=== PATIENT | female | born 1960 | race Caucasian/White ===

== ENCOUNTER → 2016-09-22 | Outpatient (CLI) | payer OTHER ==
--- NOTE | 2016-09-25 07:18 | MM ---
Reason for exam: screening (asymptomatic). Last mammogram was performed 2 years and 2 months ago. History: Patient history of other cancer. Benign US biopsy breast VAD LT of the left breast, July 18, 2014. Benign US left CoreBiopsy of both breasts, February 10, 2008. Physical Findings: A clinical breast exam by your physician is recommended on an annual basis and results should be correlated with mammographic findings. MG Screening Mammo w CAD Bilateral CC and MLO view(s) were taken. Prior study comparison: July 18, 2014, left breast MG diagnostic mammo LT wo CAD. July 06, 2014, left breast MG diagnostic mammo LT w CAD. The breast tissue is heterogeneously dense. This may lower the sensitivity of mammography. Previous mammotome biopsy in the left breast. No significant changes when compared with prior studies. ASSESSMENT: Negative, BI-RAD 1 RECOMMENDATION: Routine screening mammogram of both breasts in 1 year.
== END ==
LOC: RADMAMWWP 16:41
PROVIDERS: ATTEND Obstetrics & Gynecology
DX: Z12.31 Encounter for screening mammogram for malignant neoplasm of breast (principal)

== ENCOUNTER → 2017-09-14 | Outpatient (CLI) | payer OTHER ==
--- NOTE | 2017-09-14 21:48 | MR ---
EXAMINATION TYPE: MR brain wo/w con DATE OF EXAM: 09/14/2017 COMPARISON: NONE HISTORY: 57-year-old female with headache, fell struck back of head. TECHNIQUE: Multiplanar, multisequence images of the brain and brainstem were acquired before and aft er administration of 6 mL IV Gadavist. Diffusion weighted imaging is performed. Additional axial T2 *gradient sequence was acquired. FINDINGS: No evidence for acute infarction, hemorrhage, mass, mass effect, midline shift, herniation, effacemen t of basal cisterns, or extra-axial fluid collection. The ventricles and sulci are age-appropriate. Major intracranial flow voids are intact. T2/FLAIR weighted sequences show mild scattered bright white matter change in the subcortical, deep, and periventricular white matter of both cerebral hemispheres numbering approximately 10 on each side . There is cortical high signal in the bilateral superior parieto-occipital junctions and additional patchy increased signal in the bilateral paramedian gurdeep. T2*gradient sequence shows no evidence for prior intracranial microplates. Midline structures demonstrate normal morphology. The craniocervical junction is normal. Post contrast images demonstrate no evidence of pathologic enhancement. Dural venous sinuses are pat ent. The visualized sinuses are clear. Minimal trapped fluid in the inferior mastoid air cells. Paranasal sinuses are clear. Globes appear intact. IMPRESSION: 1. No acute intracranial abnormality seen. 2. No abnormal enhancing lesions or evidence for prior intracranial microbleeds. 3. Scattered mild burden of T2 bright white matter change, nonspecific, probably relating to chronic small vessel ischemic disease. 4. Small areas of cortical gliosis at the superior occipitoparietal junctions could reflect sequela o f prior vascular or traumatic insult. 5. Small amount of trapped fluid in the inferior mastoid air cells. Correlate for any mastoid pain to exclude mastoiditis.
== END | disposition home or self-care (01) ==
LOC: RADMRIMAIN 16:39
PROVIDERS: ATTEND Family Medicine
DX: R51 Headache (principal)
CPT/HCPCS: 70553; A9581

== ENCOUNTER → 2023-01-06 | Outpatient (CLI) | payer OTHER | END | disposition home or self-care (01) | LOC: LABWHC1 12:46 | PROVIDERS: ATTEND Family Medicine | DX: Z53.9 Procedure and treatment not carried out, unspecified reason (principal) | CPT/HCPCS: 36415 ==